=== PATIENT | male | born 1950 | race Caucasian/White ===

== ENCOUNTER → 2016-10-05 | Outpatient (CLI) | payer MEDICARE, MEDICAID ==
[~2016-10-05] MED LIST: ATOR20TA17; MELO-109 PO; ultram PO
--- NOTE | 2016-10-05 11:11 | RADRPT ---
PROCEDURE: XR Chest. CLINICAL INDICATION: Chest pain. TECHNIQUE: Single frontal view. COMPARISON: 10/09/2015. FINDINGS: The lungs are clear. The heart size is normal. There is calcification in the aorta consistent with atherosclerosis. There is no pleural effusion. There is no pneumothorax. IMPRESSION: 1. Atherosclerosis. 2. Otherwise normal chest radiograph. RPTAT: QQ .Arnie Lundberg MD, MD Date Time Electronically viewed and signed by .Arnie Lundberg MD, MD on 10/05/2016 11:11 .R/
--- NOTE | 2016-10-05 11:12 | RADRPT ---
PROCEDURE: XR Lumbar Spine. CLINICAL INDICATION: Back pain. TECHNIQUE: Three views. AP, lateral and cone-down lateral view of the lumbar spine were obtained. COMPARISON: No prior studies are available for comparison. FINDINGS: There is mild lumbar scoliosis convex left measuring 10 degrees between L1 and L5. Alignment is oth erwise normal. There is no fracture. There is no lytic or blastic lesion. There are degenerative changes with disk space narrowing and osteophytes throughout. The paravertebral soft tissues are unremarkable. IMPRESSION: 1. Scoliosis convex left. 2. Degenerative change. 3. No acute abnormality. RPTAT: QQ .Arnie Lundberg MD, MD Date Time Electronically viewed and signed by .Arnie Lundberg MD, MD on 10/05/2016 11:12 .R/
--- NOTE | 2016-10-05 11:13 | RADRPT ---
PROCEDURE: XR Knees. CLINICAL INDICATION: Bilateral knee pain. TECHNIQUE: Total of six views. Frontal, oblique, and lateral views of both knees. COMPARISON: 09/11/2014. FINDINGS: There is no fracture or dislocation. The soft tissues are normal. There are degenerative changes of both knees with osteophytes arising from all 3 joint compartment m argins bilaterally. There is bilateral medial and lateral joint compartment narrowing. There is ri ght medial joint compartment subarticular sclerosis and deformity. There is no lytic or blastic lesion. There is no radiopaque foreign body. IMPRESSION: 1. Severe degenerative changes of the right knee. 2. Moderate degenerative changes of the left knee. 3. No acute abnormality. RPTAT: QQ .Arnie Lundberg MD, MD Date Time Electronically viewed and signed by .Arnie Lundberg MD, MD on 10/05/2016 11:13 .R/
== END | disposition home or self-care (01) ==
LOC: RAD 09:11
PROVIDERS: ATTEND Internal Medicine
DX: M54.9 Dorsalgia, unspecified (principal); R07.9 Chest pain, unspecified; M25.561 Pain in right knee; M25.562 Pain in left knee
CPT/HCPCS: 71010; 72100